=== PATIENT | male | born 1965 | race Caucasian/White ===

== ENCOUNTER → 2024-03-12 | Emergency (ER) | payer SELFPAY ==
[~2024-03-12] VITALS: Ht 172.7 cm; Wt 86.4 kg
[2024-03-12 20:15] VITALS: BP 138/72; PULSE 104; RESP 18; TEMP 98.2; O2SAT 98
== END ==
LOC: ER 19:28
DX: S50.312A Abrasion of left elbow, initial encounter (principal); X58.XXXA Exposure to other specified factors, initial encounter; Y93.89 Activity, other specified; Y92.89 Other specified places as the place of occurrence of the external cause; Y99.8 Other external cause status
CPT/HCPCS: 99283